=== PATIENT | male | born 1980 | race Caucasian/White ===

== ENCOUNTER 2018-10-28 04:12 | Emergency (ER) | payer MEDICAID ==
[~2018-10-28] VITALS: Ht 170.2 cm; Wt 81.6 kg
[2018-10-28 04:16] VITALS: BP 155/90
--- NOTE | 2018-10-28 04:16 | NUR ---
TO BED # 11 AMBULATORY, REPORT GIVEN TO MICHA PANIAGUA.
--- NOTE | 2018-10-28 04:20 | NUR ---
ASSUMED CARE OF PT AT THIS TIME. C/O PENILE PAIN, REDNESS, SWELLING X 1 DAY W/ PAINFUL URINATION. AAOX4 WITH EVEN AND STEADY GAIT; PATIENT STATES PAIN OF 2/10; VSS; PATIENT POSITIONED FOR COMFORT; HOB ELEVATED; BEDRAILS UP X2; BED DOWN. ER MD MADE AWARE OF PT STATUS. WILL CONTINUE TO MONITOR.
--- NOTE | 2018-10-28 04:31 | NUR ---
Dr. Macedo evaluating patient at bedside.
[2018-10-28] MEDS ORDERED: diphenhydrAMINE 50 MG/ML VIAL IM ONE (04:35)
[2018-10-28] MEDS ORDERED: methylPREDNISolone SS 125 MG in WATER STERILE 2 ML IM ONE (04:35)
[2018-10-28 05:05] VITALS: BP 148/91
[2018-10-28 06:13] LABS: APPEARANCE,URINE CLOUDY (CLEAR); BILIRUBIN,URINE NEGATIVE (NEGATIVE); BLOOD, URINE TRACE-I (NEGATIVE); COLOR,URINE YELLOW (YELLOW); LEUKOCYTE ESTERASE ,URINE 3+ (NEGATIVE); NITRITE, URINE NEGATIVE (NEGATIVE); PH,URINE 6.5 (5.0-9.0); UGLUCOSE NEGATIVE (NEGATIVE)
[2018-10-28 06:20] LABS: RBC,URINE 0-5 (RARE) /HPF (0-5); WBC,URINE 80-100 /HPF (0-5)
== END 2018-10-28 05:05 | disposition home or self-care (01) ==
LOC: MED 04:12
DX: L23.9 Allergic contact dermatitis, unspecified cause (principal); Q54.9 Hypospadias, unspecified; N39.0 Urinary tract infection, site not specified
CPT/HCPCS: 81001; 87086; 96372; 99283; J1200; J2930

== ENCOUNTER 2020-08-14 18:16 | Emergency (ER) | payer MEDICAID ==
[~2020-08-14] VITALS: Ht 170.2 cm; Wt 77.1 kg
[2020-08-14 18:20] VITALS: BP 158/71
--- NOTE | 2020-08-14 18:25 | NUR ---
Patient ambulated to bed 3. RN evaluating patient at bedside.
--- NOTE | 2020-08-14 18:25 | NUR ---
PT C/O INTERMITTENT CRAMPING LUQ ABDOMINAL PAIN WITH N/V/D, FATIGUE, OCCASIONALLY SUBJECTIVE FEVER AND CHILLS FOR ONE WEEK. DENIES BLOOD OR MUCUS IN STOOL. REPORT CLOSE CONTACT WITH HOUSEMATE WHO WAS TESTED POSITIVE ONE WEEK AGO. DENIES COUGH, CP, SOB, SORE THROAT. SKIN IS PINK/WARM/DRY; AAOX4 WITH EVEN AND STEADY GAIT; LUNGS CLEAR BL; HR EVEN AND REGULAR; PATIENT STATES PAIN OF 6/10 AT THIS TIME; VSS; PATIENT POSITIONED FOR COMFORT; HOB ELEVATED; BEDRAILS UP X1; BED DOWN. ER MD MADE AWARE OF PT STATUS.
--- NOTE | 2020-08-14 18:42 | NUR ---
DR. ROWAN IS EVALUATING PT AT BEDSIDE.
[2020-08-14] MEDS ORDERED: KETOROLAC 30 MG/ML VIAL IM ONE (18:50)
[2020-08-14] MEDS ORDERED: ONDANSETRON 4 MG ODT PO ONE (18:50)
--- NOTE | 2020-08-14 18:59 | NUR ---
COVID SWAB OBTAINED AND SENT TO THE LAB.
--- NOTE | 2020-08-14 19:00 | NUR ---
LAB IS AT BEDSIDE.
[2020-08-14 19:08] LABS: BASOPHILS % (AUTO) 0.4 % (0.0-2.0); EOSINOPHILS # (AUTO) 0.1 K/uL (0-0.4); EOSINOPHILS % (AUTO) 1.2 % (0.0-4.0); HEMOGLOBIN 14.9 g/dL (12.0-18.0); LYMPHOCYTES # (AUTO) 0.9 K/uL (2.0-11.5); LYMPHOCYTES % (AUTO) 14.3 % (20.5-51.1); MEAN CORPUSCULAR HEMOGLOBIN 31 pg (27-31); MEAN CORPUSCULAR HGB CONC 34 g/dL (33-37); MEAN CORPUSCULAR VOLUME 90.9 fL (80-94); MONOCYTES # (AUTO) 1.1 K/uL (0.8-1.0); MONOCYTES % (AUTO) 16.8 % (1.7-9.3); NEUTROPHILS # (AUTO) 4.4 K/uL (1.8-7.7); NEUTROPHILS % (AUTO) 67.3 % (42.2-75.2); PLATELET COUNT (AUTO) 367 K/uL (140-450); RED BLOOD CELL COUNT(AUTO) 4.84 MIL/uL (4.20-6.10); RED CELL DISTRIBUTION WIDTH 13.5 % (11.6-13.7); WHITE BLOOD COUNT (AUTO) 6.6 K/uL (4.8-10.8)
--- NOTE | 2020-08-14 19:08 | NUR ---
REPORT GIVEN TO SIVA KNIGHT. TX OF CARE AT THIS TIME.
--- NOTE | 2020-08-14 19:13 | NUR ---
report received from Elvira PANIAGUA. assumed pt care at this time. VSS. pt laying down in bed. side rails x 2.
[2020-08-14 19:19] LABS: BARBITURATE, URINE NEGATIVE ng/ml (NEG <=200); BENZODIAZEPINE, URINE NEGATIVE ng/mL (NEG <=200); CANNABINOID, URINE NEGATIVE ng/mL (NEG <=50); COCAINE, URINE NEGATIVE ng/mL (NEG <=300); OPIATE, URINE NEGATIVE ng/mL (NEG <=2000); PHENCYCLIDINE SCREEN,URINE NEGATIVE ng/mL (NEG <=25)
[2020-08-14 19:24] VITALS: BP 118/71
--- NOTE | 2020-08-14 19:24 | NUR ---
reports pain decreased from 7 to 4/10 and tolerable. no other complaints at this time.
[2020-08-14 19:29] LABS: ALBUMIN 3.4 g/dL (3.4-5.0); ANION GAP 10.2 (8-16); CARBON DIOXIDE 31.7 mmol/L (21-32); CREATININE 1.2 mg/dL (0.6-1.3); POTASSIUM 3.9 mmol/L (3.5-5.1); TOTAL BILIRUBIN 0.4 mg/dL (0.0-1.0)
--- NOTE | 2020-08-14 19:41 | NUR ---
Patient discharged with v/s stable. Written and verbal after care instructions given and explained. Patient alert, oriented and verbalized understanding of instructions. Ambulatory with steady gait. All questions addressed prior to discharge. ID band removed. Patient advised to follow up with PMD. Rx of mylanta and zofran given. Patient educated on indication of medication including possible reaction and side effects. Opportunity to ask questions provided and answered.
== END 2020-08-14 19:42 | disposition home or self-care (01) ==
LOC: MED 18:16
DX: R10.12 Left upper quadrant pain (principal); R19.7 Diarrhea, unspecified; R11.2 Nausea with vomiting, unspecified
CPT/HCPCS: 80053; 80305; 81002; 83690; 85025; 96372; 99283; J1885; Q0162; U0003

== ENCOUNTER 2022-07-09 00:20 | Emergency (ER) | payer MEDICAID ==
[~2022-07-09] VITALS: Ht 170.2 cm; Wt 79.4 kg
[2022-07-09] MEDS ORDERED: IBUPROFEN 800 MG TAB PO ONE (00:35)
[2022-07-09] MEDS ORDERED: cefTRIAXone 1,000 MG in LIDOCAINE MPF 1% 2.1 ML IM ONE (00:35)
[2022-07-09] MEDS ORDERED: SULF-59 PO (00:37)
[2022-07-09] MEDS ORDERED: IBUP-1878 PO (00:37)
[2022-07-09] MEDS ORDERED: CEPH500C16 PO (00:37)
[2022-07-09] MEDS ORDERED: KETOROLAC 60 MG/2 ML VIAL IM ONE (00:40)
[2022-07-09 00:48] VITALS: BP 123/91
--- NOTE | 2022-07-09 00:53 | NUR ---
TO ROOM FOLLOWING TRIAGE
--- NOTE | 2022-07-09 00:55 | NUR ---
PT TAKEN TO BED 11
[2022-07-09] MEDS ORDERED: SULFAMETH/TRIMETH DS 800/160MG 1 TAB PO ONE (01:05)
[2022-07-09] MEDS ORDERED: cefTRIAXone 1,000 MG VIAL ONE (01:06)
[2022-07-09] MEDS ORDERED: LIDOCAINE MPF 1% 5 ML ONE (01:07)
[2022-07-09 02:10] VITALS: BP 123/91
--- NOTE | 2022-07-09 02:10 | NUR ---
Patient discharged. Written and verbal after care instructions given and explained. Patient alert, oriented and verbalized understanding of instructions. Ambulatory with steady gait. All questions addressed prior to discharge. ID band removed. Patient advised to follow up with PMD. Rx of BACTRIM DS TABLET, KEFLEX AND IBUPROFEN given. Patient educated on indication of medication including possible reaction and side effects. Opportunity to ask questions provided and answered.
== END 2022-07-09 02:10 | disposition home or self-care (01) ==
LOC: MED 00:20
DX: S70.361A Insect bite (nonvenomous), right thigh, initial encounter (principal); L03.115 Cellulitis of right lower limb; Z79.899 Other long term (current) drug therapy; W57.XXXA Bitten or stung by nonvenomous insect and other nonvenomous arthropods, initial encounter; Y93.89 Activity, other specified; Y92.89 Other specified places as the place of occurrence of the external cause; Y99.8 Other external cause status
CPT/HCPCS: 90471; 90715; 96372; 99284; J0696; J1885; J2001